=== PATIENT | female | born 1945 | race Caucasian/White ===

== ENCOUNTER 2021-09-25 07:09 | Inpatient (IN) | payer MEDICARE, OTHER ==
[2021-09-25] VITALS (9 sets, daily range): BP systolic 112–135; BP diastolic 53–83; PULSE 83–98; TEMP 97.6–98.3
[~2021-09-25] VITALS: Ht 170.2 cm; Wt 85.5 kg
[~2021-09-25 07:09] MED LIST: ALEVE 220MG220 MG PO; ASPIRIN E.C. 8181 MG PO; BRILINTA90 MG PO; BUSPAR DIVIDOSE15 MG PO; CALCIUM WITH VI1 TA1 PO; COLACE 100100 MG/CAP PO; FLONASEALLERGY NS; IPRATROPIUM BROM3 M1 IH; JANUMXR100-1000 PO; MAG-OX 400400 MG/TAB PO; MULTI VITAMINS1 TAB PO; NEURONTIN100 MG/CAP PO; NITROSTAT0.4 MG/TAB SL; NYSTATIN100000 U/1 TOP; PROAIR HFA0.09 MG/AC IH; RT ADVAIR 228 DISKUS IH; RT SPIRIVA18 MCG IH; SINGULAIR 110 MG/TAB PO; SYNTHROID 0.0.025 MG PO; TENORMIN 5050 MG/TAB PO; VITAMIN D31000 I1 PO; ZESTRIL 10MG10 MG PO; ZOCOR 40MG40 MG PO; [UNRECOGNIZED DRUG - OTHER] PO
--- NOTE | 2021-09-25 08:12 | NUR ---
The patient answered yes to the last suicide risk question but states she had these thoughts at 15 and no longer has them. She has a good support system in place.
[2021-09-25] MEDS ORDERED: TOPROL XL 50MG50 MG PO (08:17)
[2021-09-25] MEDS ORDERED: SYNTHROID0.05 MG/TA PO (08:19)
[2021-09-25] MEDS ORDERED: ZOCOR 20MG20 MG PO (08:20)
[2021-09-25] MEDS ORDERED: ATARAX 25MG25 MG/TAB PO (08:22)
[2021-09-25] MEDS ORDERED: LOTREL 5/10MG C1 CAP PO (08:23)
[2021-09-25] MEDS ORDERED: WELLBUTRIN XL300 M1 PO (08:23)
[2021-09-25] MEDS ORDERED: MAG-OX 400400 MG/TAB PO (08:23)
[2021-09-25] MEDS ORDERED: JANUVIA 100MG100 MG PO (08:24)
[2021-09-25] MEDS ORDERED: VOLTAREN GEL 1%1 TU TP (08:24)
[2021-09-25] MEDS ORDERED: GLUCOPHAGE1000 MG PO (08:24)
--- NOTE | 2021-09-25 09:43 | NUR ---
Initial visit; Patient thanked Construction Sales Manager for looking in on her and offering encouragement, prayer and God's blessings prior to her surgical procedure.
--- NOTE | 2021-09-25 12:15 | NUR ---
Patient arrived to room 330 from PACU at this time, she is drowsy but arouses easily to name, denies pain at this time, vital signs stable, dressign C/D/I, ICE pack applied, will continue to monitor
--- NOTE | 2021-09-25 15:04 | NUR ---
patient doing well post-op, alert/oriented, vital signs stable, pain controlled with PO pain medications, she is tolerating eating and drinking without issues, will discontinue IVF if she continues to do well, denies other needs at this time
--- NOTE | 2021-09-25 18:29 | NUR ---
Patient continues to do well post-operatively, pain is being controlled with PO pain medications, vital signs remain stable, she is tolerating eating and drinking without issues, she has ambulated to the bathroom with assistance, dressing C/D/I, ICE pack applied to left knee, denies other needs
--- NOTE | 2021-09-25 18:48 | NUR ---
RECEIVED CHANGE OF SHIFT REPORT FROM DAY SHIFT RN.
[2021-09-26 03:59] VITALS: BP 132/76; PULSE 102; TEMP 98.4
[2021-09-26 06:19] LABS: HEMATOCRIT 34.6 % (37.0-47.0)
--- NOTE | 2021-09-26 07:01 | NUR ---
Shift report received from night stocker RN. Patient awake and resting in bed. Ice pack noted to left knee. Patient currently denies pain or discomfort and reports that she "just got a pain pill". Call light within her reach. She denies further needs at this time
--- NOTE | 2021-09-26 07:33 | NUR ---
CHANGE OF SHIFT REPORT GIVEN TO DAY SHIFT RNs, JULIO.
--- NOTE | 2021-09-26 07:57 | NUR ---
Patient resting in bed. Currently denies any pain. Left leg resting on pillow. Right leg has HANNAH hose on. Dressing changed to left knee. Gauze and juanita wrap removed. Left knee incision well approximated w/out redness, swelling, or drainage. Aquacell dressing applied as per dressing change order. Assisted patient with ordering her breakfast. She denies any further needs at this time. Call light is within her reach
[2021-09-26 08:00] VITALS: BP 139/67; PULSE 98; TEMP 97.7
--- NOTE | 2021-09-26 09:18 | NUR ---
Follow-up; Patient sleeping, Geospatial Technician left prayer card for a rapid and thorough recovery.
--- NOTE | 2021-09-26 09:19 | NUR ---
Patient in room; was assisted by PT to ambulate with walker to bathroom. Patient now sitting in chair at bedside and continues to work with PT. Aquacell dressing Lt. knee CDI.
--- NOTE | 2021-09-26 10:03 | NUR ---
Patient has completed her breakfast while sitting in chair at bedside. Patient assisted back to her bed at her request. Gait belt and walker use. Aquacell dressing to Lt. knee remains CDI. Patient encourage to cough and deep breathe. Denies further needs at this time. Call light is within her reach
--- NOTE | 2021-09-26 10:59 | NUR ---
Tomography Technologist met with patient to discuss discharge planning. Patient lives alone in [place] and sees KAVITHA Mendoza for primary care. Patient obtains medications from [facility] and has a cane, walker, and bedside commode at home. Patient states she is normally independent with ADLS and has outpatient PT set up at [facility]. Patient states she is not sure if she has DPOA-HC, but knows she has a living will. Patient has two sons, Bhupendra (ph#[phone]) and Shaggy. Patient states Shaggy lives in [facility]. Discharge Plan: Home
--- NOTE | 2021-09-26 11:45 | NUR ---
Patient up with walker to ambulate to commode. HANNAH sanchez applied to LLE. SCD's applied to BLE. Patient reporting pain at 7/10. PRN pain medication administered as ordered
[2021-09-26 12:21] VITALS: BP 124/63; PULSE 81; TEMP 97.6
[2021-09-26 15:56] VITALS: BP 130/51; PULSE 90; TEMP 98.3
--- NOTE | 2021-09-26 20:30 | NUR ---
PT AWAKE, ALERT AND ORIENTED X4. HAS INT TO LEFT WRIST. MEDICATED WITH HS MEDS INCLUDING OXYCODONE 10MG PO FOR PAIN TO LEFT KNEE 10/27. AQUACEL DRSG INTACT, MILD SWELLING NOTED. UP WITH ONE ASSIST AND WALKER TO BATHROOM.
[2021-09-26 23:37] VITALS: BP 110/68; PULSE 77; TEMP 98.4
[2021-09-27] VITALS (7 sets, daily range): BP systolic 83–160; BP diastolic 39–100; PULSE 70–81; TEMP 97.5–98.1
--- NOTE | 2021-09-27 00:50 | NUR ---
PT REPORTS PAIN, MEDICATED WITH OXYCODONE 10MG PO AT THIS TIME.
--- NOTE | 2021-09-27 06:00 | NUR ---
PT TAKES SCHEDULED AM MEDS INCLUDING OXYCODONE 10MG PO FOR LEFT KNEE PAIN. ASSISTED TO BATHROOM WITH WALKER, GAIT SLOW AND STEADY.
--- NOTE | 2021-09-27 08:30 | NUR ---
Pt sitting up in the chair at this time, therapy is in working with her. Pt has ordered breakfast, tray has not arrived yet. Pt having some complaints of pain, PRN pain medication given. Pt BP is off as compared to her other BPs, asked PCT to do a recheck. Pt denies any other needs, call light within reach
--- NOTE | 2021-09-27 13:08 | NUR ---
The patient's RN and OT notified JAMES that the patient lives alone and would benefit from SNF. SW met with the patient to address their recommendation. The patient is agreeable to SNF and would prefer [facility]. SW discussed having a second option in case [facility] cannot take on Thursday. The patient verbalized understanding and was interested in either [facility] or [facility]. She is open to going to [facility] or [facility], if [facility] cannot take tomorrow. JAMES contacted and faxed a referral to [facility]. Elisabeth, at [facility], states that they will have to review the referral before she can say if they can consider being able to take the patient tomorrow. Awaiting screens. JAMES contacted and updated the patient's son, Bhupendra. Bhupendra is supportive of SNF. He states that he does not want the patient to go to [facility]. He reports that their father was there and they moved him to a different facility. Bhupendra lives 10 miles out of [place]. SW to continue to follow. *Discharge plan: SNF*
--- NOTE | 2021-09-27 14:01 | NUR ---
Pt just finished with therapy. Pt having increase in pain, PRN pain medication given. Pts lunch arrived late, pt eating at this time. Pt did refuse to get in the chair following surgery
--- NOTE | 2021-09-27 15:28 | NUR ---
Simran, at [facility], reports that they are able to accept the patient tomorrow. Simran plans on contacting the patient's son, Bhupendra. JAMES met with the patient to update her on [facility]'s acceptance and how we have not heard back from [facility]. The patient states that she is all good with going to [facility] tomorrow. JAMES updated the patient's RN. Elisabeth, at [facility], reports that they do not have transportation on tomorrow and would not be able to take until Thursday. JAMES updated the patient's son, Bhupendra. Bhupendra states that Simran at [facility] already reached out to him and he is all good with the patient going to [facility] tomorrow. *Discharge plan: [facility] Thursday*
[2021-09-27] MEDS ORDERED: ASPI325T6 PO (15:52)
[2021-09-27] MEDS ORDERED: ROXICODONE 55 MG/TAB PO (15:53)
[2021-09-27] MEDS ORDERED: ULTRAM 50MG TAB50 MG PO (15:54)
[2021-09-27] MEDS ORDERED: SENOKOT S 50 MG1 TAB PO (15:55)
--- NOTE | 2021-09-27 20:11 | NUR ---
PT IN BED, ASKING FOR PAIN MEDS. MEDICATED WITH SCHEDULED ES TYLENOL AND OXYCODONE 10MG PO AT THIS TIME. INT TO LEFT WRIST. LEFT KNEE WITH EDEMA, SCANT DRAINAGE NOTED ON AQUACEL DRSG. DOES NOT LIKE TO HAVE LEFT LEG ELEVATED ON PILLOW. PLACED SCDS ON PT AT THIS TIME. IS ALERT AND ORIENTED X4. REPORTS DISCHARGING TO SNF FACILITY TOMORROW.
[2021-09-28] VITALS (8 sets, daily range): BP systolic 82–118; BP diastolic 41–60; PULSE 83–86; TEMP 97.8–98.5
--- NOTE | 2021-09-28 02:02 | NUR ---
PT UP TO BATHROOM WITH SLOW STEADY GAIT. BACK TO BED, REPORTS PAIN TO LEFT KNEE. MEDICATED WITH OXYCODONE 10MG PO AND SCHEDULED ES TYLENOL AT THIS TIME.
--- NOTE | 2021-09-28 05:45 | NUR ---
PT MEDICATED WITH SCHEDULED AM MED INCLUDING TRAMADOL 100MG PO FOR LEFT KNEE PAIN. B/P READINGS HAVE BEEN RECORDED LOW PER MACHINE, PER MANUAL CUFF B/P WNL.
--- NOTE | 2021-09-28 09:30 | NUR ---
pt BP is low, morning BP meds held. Pt reports that her pain is tolerable. Small amount of drainge noted to the dressing on her left knee. pt has had and tolerated breakfast. Therapy has been in to work with her. Narcotics not given due to BP. Pt aware that she is leaving today
--- NOTE | 2021-09-28 12:07 | NUR ---
SW informed that patient would be DCing on this day. SW contacted facility that patient would be transfering to at [facility], faxed information to facility and obtained signature on IM form from patient. IM documentation placed in patient's chart. Nothing further.
--- NOTE | 2021-09-28 12:30 | NUR ---
IV removed from left hand, informed pt that she would be leaving soon. Pt eating lunch now
--- NOTE | 2021-09-28 13:22 | NUR ---
Pt left via transportation from [facility]
--- NOTE | 2021-09-28 13:31 | NUR ---
Report called to Janneth at [facility]
== END 2021-09-28 13:32 | DRG 470 ==
LOC: SDCO 07:09 → INPTSU 09:16 → SURG 09:16 → SDCO 10:20 → SURG 12:43 → SDCO 13:30 → SURG 09-28 13:32
PROVIDERS: Orthopaedic Surgery; ADMIT Internal Medicine
PROC: 0SRD0J9 Replacement of Left Knee Joint with Synthetic Substitute, Cemented, Open Approach (ICD-10-PCS; principal; 2021-09-25 10:20)
DX: M17.12 Unilateral primary osteoarthritis, left knee (principal); J44.9 Chronic obstructive pulmonary disease, unspecified; E11.9 Type 2 diabetes mellitus without complications; Z20.822 Contact with and (suspected) exposure to COVID-19
CPT/HCPCS: A9284; C1713; C1776; J0690; J2250; J2270; J2704; J7030